=== PATIENT | female | born 1970 | race Caucasian/White ===

== ENCOUNTER 2016-04-26 11:23 | Emergency (ER) | payer OTHER ==
[~2016-04-26 11:23] MED LIST: ACET500C OR; EPI PEN; FERR325T OR; LEVO25TA2 OR; MULTIVIT OR; ORTHO TRI CYCLEN OR
[2016-04-26] MEDS ORDERED: ONDANSETRON 4MG/2ML VIAL (J2405) As Ordered ONE (13:24)
[2016-04-26] MEDS ORDERED: KETOROLAC 30 MG/ML VIAL (J1885) As Ordered ONE (13:24)
[2016-04-26 13:47] LABS: BASO % 0.2 % (0.0-1.0); EOS # 0.1 K/mm3 (0.0-0.50); EOS % 1.8 % (0.0-3.0); LARGE UNSTAINED CELL # 0.1 K/mm3 (0.0-0.4); LARGE UNSTAINED CELL % 1.6 % (0.0-4.0); LYMPH # 1.1 K/mm3 (1.5-4.5); LYMPH % 14.7 % (24.0-44.0); MEAN CORPUSCULAR HEMOGLOBIN 29.9 pg (27.0-33.0); MEAN CORPUSCULAR HGB CONC 33.8 g/dl (32.0-36.5); MEAN CORPUSCULAR VOLUME 88.5 fl (80.0-96.0); MONO # 0.3 K/mm3 (0.0-0.8); MONO % 3.8 % (0.0-5.0); NEUTROPHILS % 77.9 % (36.0-66.0); PLATELET COUNT, AUTOMATED 229 k/mm3 (150-450); RED CELL DISTRIBUTION WIDTH 11.9 % (11.5-14.5); WHITE BLOOD COUNT 7.7 K/mm3 (4.0-10.0)
[2016-04-26 14:13] LABS: ALBUMIN 3.8 GM/DL (3.2-5.2); ALBUMIN/GLOBULIN RATIO 1.03 (1.00-1.93); ALKALINE PHOSPHATASE 100 U/L (45-117); ALT/SGPT 30 U/L (12-78); ANION GAP 7 MEQ/L (8-16); AST/SGOT 18 U/L (15-37); BILIRUBIN,DIRECT < 0.1 MG/DL (0.0-0.2); BILIRUBIN,TOTAL 0.2 MG/DL (0.2-1.0); BLOOD UREA NITROGEN 17 MG/DL (7-18); CARBON DIOXIDE LEVEL 31 MEQ/L (21-32); CHLORIDE LEVEL 104 MEQ/L (98-107); CREATININE FOR GFR 0.75 MG/DL (0.55-1.02); GLOMERULAR FILTRATION RATE > 60.0 (>58); GLUCOSE, FASTING 86 MG/DL (70-105); POTASSIUM SERUM 3.8 MEQ/L (3.5-5.1); SODIUM LEVEL 142 MEQ/L (136-145); TOTAL PROTEIN 7.5 GM/DL (6.4-8.2)
--- NOTE | 2016-04-26 14:41 | REP ---
Chest x-ray: Two views. History: Cough. Findings: The lungs are well inflated and clear. Pleural angles are sharp. Heart size is normal. No significant bony abnormality is seen. Impression: Negative chest x-ray. Signed by Miki Harrison MD 04/26/2016 03:10 P
--- NOTE | 2016-04-26 15:27 | EDDOCDS ---
Nurse's Notes [facility] Name: Rachel Paula Age: 45 yrs Sex: Female : 1970 Arrival Date: 04/26/2016 Time: 11:23 Bed I5 / M5 Private MD: LADAN Patiño Diagnosis: Acute upper respiratory infections of multiple and unspecified sites;Acute bronchitis Presentation: 04/26 11:29 Presenting complaint: Patient states: "I feel very shaky, and weak and nauseous. I've ead been sick for a week and on antibiotics. I've had a really bad cough. I'm on my third day of antibiotic." Pt started on azithromycin. Adult Sepsis Screening: The patient does not have new or worsening altered mentation. Patient's respiratory rate is less than 22. Systolic blood pressure is greater than 100. Patient has a qSOFA score of 0- Negative Sepsis Screen. Suicide/Homicide risk assessment- the patient denies having any suicidal and/or homicidal ideations and does not present with any other emotional, behavioral or mental health complaints. Status: The patient is a dependent. Transition of care: patient was not received from another setting of care. 11:29 Acuity: VICKIE Level 3 ead 11:29 Method Of Arrival: Walkin/Carried/Asstd ead Triage Assessment: 11:35 General: Appears in no apparent distress, Behavior is appropriate for age, cooperative. ead Pain: Denies pain. HIV screening NA for this visit Offered previously. Neurological: Level of Consciousness is awake, alert, Oriented to person, place, time, Reports dizziness. Neurological: Reports weakness. Respiratory: Airway is patent Respiratory effort is even, unlabored, Reports cough that is. GI: Reports nausea. Derm: Skin is pink, warm & dry. 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 levothyroxine 25 mcg Oral tab 1 tab once daily 2. EpiPen 0.3 mg/0.3 mL (1:1,000) injection atIn 0.3 mL as needed 3. cetirizine 10 mg oral tab 1 tab every three weeks with allergy shots 4. Vitamin C 500 mg Oral tab daily 5. Oyster Shell Calcium With D 500/200 Oral daily 6. Benadryl 25 mg Oral cap 1 cap as needed 7. bupropion HCl 450 mg oral Tb24 once daily 8. ferrous fumarate-docusate sodium oral daily - PMHx: Hypothyroidism; Depression; - PSHx: Cholecystectomy; ; Appendectomy; Adenoidectomy; - Social history: Smoking status: Patient states was never smoker of tobacco. No barriers to communication noted, The patient speaks fluent Hong Konger, Speaks appropriately for age. - : The pt / caregiver states he / she is not on anticoagulants. Home medication list is obtained from the patient, Duroline import data, pill bottles. - Exposure Risk Screening:: None identified. Screenin:36 Screening information is obtained from the patient. Fall risk: No risks identified. ead Assistance ADL's: requires no assistance with activities of daily living. Abuse/DV Screen: The patient / caregiver reports he/she is: not in a situation that causes fear, pain or injury. Nutritional screening: No deficits noted. Advance Directives: Currently, there is no health care proxy. There is no active DNR order. There is no living will. There is no Power of Bsw. home support is adequate. Assessment: 15:25 General: Appears in no apparent distress. General: Reports fatigue for >3 days. jjr Respiratory: Airway is patent Respiratory effort is even, unlabored, Respiratory pattern is regular, Reports cough that is hacking, persistent. Derm: Skin is pink, warm & dry. Vital Signs: 11:24 BP 151 / 73; Pulse 69; Resp 16; Temp 98.3(O); Pulse Ox 100% on R/A; Weight 92.99 kg; sew Height 5 ft. 6 in. (167.64 cm); Pain 0/10; 14:53 BP 134 / 67; Pulse 73; Resp 18; Temp 98.6(O); Pulse Ox 92% on R/A; Pain 2/10; rs6 11:24 Body Mass Index 33.09 (92.99 kg, 167.64 cm) [facility]: 11:24 Log In Time: April 26, 2016 at 11:15. [facility] [place] Course: 11:24 Patient visited by Doris Lei. sew 11:24 [facility] is Private Physician. sew 11:24 Patient moved to Waiting sew 11:25 Patient visited by Doris Lei. sew 11:25 Patient moved to Pre RCE sew 11:31 Triage Initiated ead 11:53 Patient moved to Triage 1 mlb1 12:17 Patient visited by Iesha Carranza RN. ck1 12:41 Marko Marsh PA-C is PHCP. cc10 12:41 Doris Fan MD is Attending Physician. cc10 12:43 Patient visited by Marko Marsh PA-C. cc10 12:43 Patient visited by Marko Marsh PA-C. cc10 12:56 Patient moved to I5 / M5 mlb1 12:59 Patient visited by Tatiana Vazquez PCA. bnb 13:08 Patient visited by Tatiana Vazquez PCA. bnb 13:08 EKG done. (by ED staff). Reviewed by Marko Marsh PA-C. bnb 13:33 Basic Metabolic Profile Sent. mk4 13:33 CBC with Diff Sent. mk4 13:33 Lipase Sent. mk4 13:33 Liver Profile Sent. mk4 13:40 Patient visited by Marycruz Macias RN. mk4 13:53 Patient name changed from Rachel\\S\\Felipa\\S\\[place]\\S\\ to Rachel\\S\\L\\S\\Chai. EDMS 13:54 [facility] Payment Agreement was scanned into [employer] and attached to record. lg 14:19 Patient visited by Marycruz Macias RN. mk4 14:20 Patient visited by Marko Marsh PA-C. cc10 14:45 Haroon [facility] is Referral Physician. cc10 14:54 Patient visited by Latoya Goldsmith PCA. rs6 15:25 The patient / caregiver is instructed regarding the plan of care and ED course. jjr 15:25 Discontinued lock intact, bleeding controlled, pressure dressing applied, No jjr redness/swelling at site. 20 gauge left AC. No procedures done that require assistance. 15:26 Chest, 2 View (pa\\E\\lat) Returned. EDMS Administered Medications: 13:15 Drug: Albuterol-Ipratropium 3 ml [ipratropium-albuterol 0.5 mg-3 mg(2.5 mg base)/3 mL rs5 nebulization soln (3 mL)] Route: Inhalation; 13:36 Drug: NS 0.9% 1000 ml [sodium chloride 0.9 % intravenous solution] Route: IV; Rate: mk4 bolus; Site: left antecubital; 13:37 Drug: Ondansetron 4 mg Route: IVP; Site: left antecubital; mk4 13:38 Drug: ketorolac 30 mg [ketorolac 30 mg/mL (1 mL) injection solution (1 mL)] Route: IVP; mk4 Site: left antecubital; RT: 13:15 Initial Med Neb Given as ordered Patient was instructed and evaluated on procedure rs5 Patient tolerated procedure well without adverse effect. Respiratory: Respiratory effort is even, unlabored, Respiratory pattern is regular symmetrical, Reports cough that is productive air hunger. Order Results: Lab Order: Basic Metabolic Profile; SPEC'M 04/26/16 13:13 Test: GLUCOSE, FASTING; Value: 86; Range: 70-105; Units: MG/DL; Status: F Test: BLOOD UREA NITROGEN; Value: 17; Range: 7-18; Units: MG/DL; Status: F Test: CREATININE FOR GFR; Value: 0.75; Range: 0.55-1.02; Units: MG/DL; Status: F Test: GLOMERULAR FILTRATION RATE; Value: > 60.0; Range: >58; Status: F Test: SODIUM LEVEL; Value: 142; Range: 136-145; Units: MEQ/L; Status: F Test: POTASSIUM SERUM; Value: 3.8; Range: 3.5-5.1; Units: MEQ/L; Status: F Test: CHLORIDE LEVEL; Value: 104; Range: 98-107; Units: MEQ/L; Status: F Test: CARBON DIOXIDE LEVEL; Value: 31; Range: 21-32; Units: MEQ/L; Status: F Test: ANION GAP; Value: 7; Range: 8-16; Abnormal: Below low normal; Units: MEQ/L; Status: F Test: CALCIUM LEVEL; Value: 9.0; Range: 8.5-10.1; Units: MG/DL; Status: F Test Note: ; Units are mL/min/1.73 m2 Chronic Kidney Disease Staging per NKF: Stage I & II GFR >=60 Normal to Mildly Decreased Stage III GFR 30-59 Moderately Decreased Stage IV GFR 15-29 Severely Decreased Stage V GFR <15 Very Little GFR Left ESRD GFR <15 on LOGISTICS OPERATIONS MANAGER Lab Order: CBC with Diff; SPEC'M 04/26/16 13:13 Test: WHITE BLOOD COUNT; Value: 7.7; Range: 4.0-10.0; Units: K/mm3; Status: F Test: RED BLOOD COUNT; Value: 4.20; Range: 4.00-5.40; Units: M/mm3; Status: F Test: HEMOGLOBIN; Value: 12.6; Range: 12.0-16.0; Units: g/dl; Status: F Test: HEMATOCRIT; Value: 37.2; Range: 36.0-47.0; Units: %; Status: F Test: MEAN CORPUSCULAR VOLUME; Value: 88.5; Range: 80.0-96.0; Units: fl; Status: F Test: MEAN CORPUSCULAR HEMOGLOBIN; Value: 29.9; Range: 27.0-33.0; Units: pg; Status: F Test: MEAN CORPUSCULAR HGB CONC; Value: 33.8; Range: 32.0-36.5; Units: g/dl; Status: F Test: RED CELL DISTRIBUTION WIDTH; Value: 11.9; Range: 11.5-14.5; Units: %; Status: F Test: PLATELET COUNT, AUTOMATED; Value: 229; Range: 150-450; Units: k/mm3; Status: F Test: NEUTROPHILS %; Value: 77.9; Range: 36.0-66.0; Abnormal: Above high normal; Units: %; Status: F Test: LYMPH %; Value: 14.7; Range: 24.0-44.0; Abnormal: Below low normal; Units: %; Status: F Test: MONO %; Value: 3.8; Range: 0.0-5.0; Units: %; Status: F Test: EOS %; Value: 1.8; Range: 0.0-3.0; Units: %; Status: F Test: BASO %; Value: 0.2; Range: 0.0-1.0; Units: %; Status: F Test: LARGE UNSTAINED CELL %; Value: 1.6; Range: 0.0-4.0; Units: %; Status: F Test: NEUTROPHILS #; Value: 6.0; Range: 1.8-7.7; Units: K/mm3; Status: F Test: LYMPH #; Value: 1.1; Range: 1.5-4.5; Abnormal: Below low normal; Units: K/mm3; Status: F Test: MONO #; Value: 0.3; Range: 0.0-0.8; Units: K/mm3; Status: F Test: EOS #; Value: 0.1; Range: 0.0-0.50; Units: K/mm3; Status: F Test: BASO #; Value: 0.0; Range: 0.0-0.2; Units: K/mm3; Status: F Test: LARGE UNSTAINED CELL #; Value: 0.1; Range: 0.0-0.4; Units: K/mm3; Status: F Lab Order: Lipase; SPEC'M 04/26/16 13:13 Test: LIPASE; Value: 138; Range: 73-393; Units: U/L; Status: F Lab Order: Liver Profile; SPEC'M 04/26/16 13:13 Test: AST/SGOT; Value: 18; Range: 15-37; Units: U/L; Status: F Test: ALT/SGPT; Value: 30; Range: 12-78; Units: U/L; Status: F Test: ALKALINE PHOSPHATASE; Value: 100; Range: 45-117; Units: U/L; Status: F Test: BILIRUBIN,TOTAL; Value: 0.2; Range: 0.2-1.0; Units: MG/DL; Status: F Test: BILIRUBIN,DIRECT; Value: < 0.1; Range: 0.0-0.2; Units: MG/DL; Status: F Test: TOTAL PROTEIN; Value: 7.5; Range: 6.4-8.2; Units: GM/DL; Status: F Test: ALBUMIN; Value: 3.8; Range: 3.2-5.2; Units: GM/DL; Status: F Test: ALBUMIN/GLOBULIN RATIO; Value: 1.03; Range: 1.00-1.93; Status: F Lab Order: Urinalysis; SPEC'M 04/26/16 13:00 Test: APPEARANCE, URINE; Value: CLEAR; Range: CLEAR; Status: F Test: COLOR, URINE; Value: COLORLESS; Range: YELLOW; Status: F Test: PH,URINE; Value: 6.0; Range: 5.0-9.0; Units: UNITS; Status: F Test: SPECIFIC GRAVITY URINE AUTO; Value: 1.002; Range: 1.002-1.035; Status: F Test: PROTEIN, URINE AUTO; Value: NEGATIVE; Range: NEGATIVE; Units: mg/dL; Status: F Test: GLUCOSE, URINE (UA) AUTO; Value: NEGATIVE; Range: NEGATIVE; Units: mg/dL; Status: F Test: KETONE, URINE AUTO; Value: NEGATIVE; Range: NEGATIVE; Units: mg/dL; Status: F Test: UROBILINOGEN, URINE AUTO; Value: 0.2; Range: 0.0-2.0; Units: mg/dL; Status: F Test: BILIRUBIN, URINE AUTO; Value: NEGATIVE; Range: NEGATIVE; Status: F Test: NITRITE, URINE AUTO; Value: NEGATIVE; Range: NEGATIVE; Status: F Test: LEUKOCYTE ESTERASE, URINE AUTO; Value: NEGATIVE; Range: NEGATIVE; Status: F Test: BLOOD, URINE BLOOD; Value: 1+; Range: NEGATIVE; Abnormal: Above high normal; Status: F Test: WBC, URINE AUTO; Value: 0; Range: 0-3; Units: /HPF; Status: F Test: RBC, URINE AUTO; Value: 0; Range: 0-3; Units: /HPF; Status: F Test: BACTERIA, URINE AUTO; Value: NEGATIVE; Range: NEGATIVE; Status: F Test: SQUAMOUS EPITHELIAL CELL UR AU; Value: 0; Range: 0-6; Units: /HPF; Status: F Test: HYALINE CAST, URINE AUTO; Value: 0; Range: 0-1; Units: /LPF; Status: F Radiology Order: Chest, 2 View (pa\\E\\lat) Test: Chest, 2 View (pa\\E\\lat) REASON FOR EXAMINATION: Cough; Chest x-ray: Two views.; ; History: Cough.; ; Findings: The lungs are well inflated and clear. Pleural angles are sharp.; Heart size is normal. No significant bony abnormality is seen.; ; Impression:; ; Negative chest x-ray.; ; ; Signed by; Miki Harrison MD 04/26/2016 03:10 P; Outcome: 14:45 Discharge ordered by Provider. cc10 15:26 Discharge Assessment: patient administered narcotics - no. The following High Risk jjr Discharge criteria are identified: None. Discharged to home ambulatory. Condition: stable. Discharge instructions given to patient, Instructed on discharge instructions, follow up and referral plans. medication usage, Demonstrated understanding of instructions, medications, Prescriptions given X 2. No special radiology studies were completed. Property sent home with patient. 15:26 Patient left the ED. jjr Signatures: Dispatcher [employer] EDMS Liset Dunn, Reg Reg lg Harshad Engel, RN RN mlb1 Iesha Carranza,RN RN ck1 Adriana Gruber, RN RN jjr Isrrael Guzman,RT RT rs5 Doris Lei Margaret, RN RN mk4 Katherine Espinal,RN RN Marko San, PA-C PA-C cc10 Latoya Goldsmith, ACROBATIC RIGGER ACROBATIC RIGGER rs6 Tatiana Vazquez, ACROBATIC RIGGER ACROBATIC RIGGER bnb MTDD
--- NOTE | 2016-04-26 15:27 | EDDOCDS ---
Physician Documentation [facility] Name: Rachel Paula Age: 45 yrs Sex: Female : 1970 Arrival Date: 04/26/2016 Time: 11:23 Bed I5 / M5 Private MD: LADAN Patiño Disposition: 04/26/16 14:45 Discharged to Home/Self Care. Impression: Acute upper respiratory infections of multiple and unspecified sites, Acute bronchitis. - Condition is Stable. - Discharge Instructions: Acute Bronchitis, Upper Respiratory Infection, Adult. - Prescriptions for Prednisone 20 mg Oral Tablet - take 1 tablet by ORAL route once daily for 5 days; 5 tablet. Albuterol Sulfate 90 mcg/actuation Inhalation HFA Aerosol Inhaler - inhale 2 puff by INHALATION route every 4 hours As needed; 1 Inhaler. - Medication Reconciliation, Local Pharmacy Hours form. - Follow up: Emergency Department; When: As needed; Reason: Worsening of conditions. Follow up: LADAN Patiño; When: Call to arrange an appointment; Reason: Wound/Symptom Recheck, Recheck today's complaints, Worsening of conditions, Continuance of care. - Problem is an ongoing problem. - Symptoms are unchanged. Historical: - Allergies: Cephalexin; Tree Nuts; Codeine Sulfate; - Home Meds: 1. levothyroxine 25 mcg Oral tab 1 tab once daily 2. EpiPen 0.3 mg/0.3 mL (1:1,000) injection atIn 0.3 mL as needed 3. cetirizine 10 mg oral tab 1 tab every three weeks with allergy shots 4. Vitamin C 500 mg Oral tab daily 5. Oyster Shell Calcium With D 500/200 Oral daily 6. Benadryl 25 mg Oral cap 1 cap as needed 7. bupropion HCl 450 mg oral Tb24 once daily 8. ferrous fumarate-docusate sodium oral daily - PMHx: Hypothyroidism; Depression; - PSHx: Cholecystectomy; ; Appendectomy; Adenoidectomy; - Social history: Smoking status: Patient states was never smoker of tobacco. No barriers to communication noted, The patient speaks fluent Vietnamese, Speaks appropriately for age. - : The pt / caregiver states he / she is not on anticoagulants. Home medication list is obtained from the patient, [employer] import data, pill bottles. - Exposure Risk Screening:: None identified. 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 6 in. (167.64 cm); Pain 0/10; 14:53 BP 134 / 67; Pulse 73; Resp 18; Temp 98.6(O); Pulse Ox 92% on R/A; Pain 2/10; rs6 11:24 Body Mass Index 33.09 (92.99 kg, 167.64 cm) sew MDM: 12:54 NS 0.9% 1000 ml IV at bolus once ordered. cc10 12:54 Ondansetron 4 mg IVP once ordered. cc10 12:54 ketorolac 30 mg IVP once ordered. cc10 12:54 IV Saline Lock ordered. cc10 12:54 Undress patient appropriately for examination ordered. cc10 12:55 NOTHING BY MOUTH+DIET ordered. EDMS 12:56 Basic Metabolic Profile Ordered. EDMS 12:56 CBC with Diff Ordered. EDMS 12:56 Lipase Ordered. EDMS 12:56 Liver Profile Ordered. EDMS 12:56 Urinalysis Ordered. EDMS 12:56 Chest, 2 View (pa\E\lat) Ordered. EDMS 12:56 ECG WITH READING ER PHYS+CARDIAG ordered. EDMS 13:08 Albuterol-Ipratropium 3 ml Inhalation once ordered. cc10 13:08 Call Respiratory ordered. cc10 13:08 Financial registration complete. lg 13:10 Call Respiratory complete. bnb 13:45 Urinalysis Reviewed. cc10 13:54 [facility] Payment Agreement was scanned into [email or web address] and attached to record. lg 14:11 CBC with Diff Reviewed. cc10 14:20 Basic Metabolic Profile Reviewed. cc10 14:20 Lipase Reviewed. cc10 14:20 Liver Profile Reviewed. cc10 14:21 Vital Signs ordered. cc10 Administered Medications: 13:15 Drug: Albuterol-Ipratropium 3 ml [ipratropium-albuterol 0.5 mg-3 mg(2.5 mg base)/3 mL rs5 nebulization soln (3 mL)] Route: Inhalation; 13:36 Drug: NS 0.9% 1000 ml [sodium chloride 0.9 % intravenous solution] Route: IV; Rate: mk4 bolus; Site: left antecubital; 13:37 Drug: Ondansetron 4 mg Route: IVP; Site: left antecubital; mk4 13:38 Drug: ketorolac 30 mg [ketorolac 30 mg/mL (1 mL) injection solution (1 mL)] Route: IVP; mk4 Site: left antecubital; Signatures: Dispatcher [employer] EDLiset Hollingsworth, Reg Reg lg Adriana Gruber, RN RN Katherine AlbarranRN RN Marko San, PA-C PA-C cc10 Tatiana Vazquez, SHEA WAREHOUSE DIRECTOR Isrrael Nevarez RT rs5 Marycruz Macias RN mk4 The chart was reviewed and I authenticate all verbal orders and agree with the evaluation and treatment provided.Attachments: 13:54 [facility] Payment Agreement lg MTDD
--- NOTE | 2016-04-26 21:19 | ECGEPIP ---
Stationary ECG Study [facility] - ED Test Date: 2016-04-26 Pat Name: ALINA SHEARER Department: Room: - Gender: F Director Of Testing: richy : 1970 Requested By: Marko Marsh PA-C Order Number: [id number] Reading MD: Urbano Gayle Measurements Intervals Speer Rate: 62 P: 43 TX: 179 QRS: -17 QRSD: 117 T: 1 QT: 404 QTc: 411 Interpretive Statements SINUS RHYTHM WITH OCCASIONAL SUPRAVENTRICULAR PREMATURE COMPLEXES MODERATE INTRAVENTRICULAR CONDUCTION DELAY MODERATE VOLTAGE CRITERIA FOR LVH, CONSIDER NORMAL VARIANT Electronically Signed On 04-26-2016 21:19:14 EST by Urbano Gayle
--- NOTE | 2016-04-28 16:27 | EDDOCDS ---
Physician Documentation [facility] Name: Rachel Paula Age: 45 yrs Sex: Female : 1970 Arrival Date: 04/26/2016 Time: 11:23 Bed I5 / M5 Private MD: LADAN Patiño Disposition: 04/26/16 14:45 Discharged to Home/Self Care. Impression: Acute upper respiratory infections of multiple and unspecified sites, Acute bronchitis. - Condition is Stable. - Discharge Instructions: Acute Bronchitis, Upper Respiratory Infection, Adult. - Prescriptions for Prednisone 20 mg Oral Tablet - take 1 tablet by ORAL route once daily for 5 days; 5 tablet. Albuterol Sulfate 90 mcg/actuation Inhalation HFA Aerosol Inhaler - inhale 2 puff by INHALATION route every 4 hours As needed; 1 Inhaler. - Medication Reconciliation, Local Pharmacy Hours form. - Follow up: Emergency Department; When: As needed; Reason: Worsening of conditions. Follow up: LADAN Patiño; When: Call to arrange an appointment; Reason: Wound/Symptom Recheck, Recheck today's complaints, Worsening of conditions, Continuance of care. - Problem is an ongoing problem. - Symptoms are unchanged. Historical: - Allergies: Cephalexin; Tree Nuts; Codeine Sulfate; - Home Meds: 1. levothyroxine 25 mcg Oral tab 1 tab once daily 2. EpiPen 0.3 mg/0.3 mL (1:1,000) injection atIn 0.3 mL as needed 3. cetirizine 10 mg oral tab 1 tab every three weeks with allergy shots 4. Vitamin C 500 mg Oral tab daily 5. Oyster Shell Calcium With D 500/200 Oral daily 6. Benadryl 25 mg Oral cap 1 cap as needed 7. bupropion HCl 450 mg oral Tb24 once daily 8. ferrous fumarate-docusate sodium oral daily - PMHx: Hypothyroidism; Depression; - PSHx: Cholecystectomy; ; Appendectomy; Adenoidectomy; - Social history: Smoking status: Patient states was never smoker of tobacco. No barriers to communication noted, The patient speaks fluent German, Speaks appropriately for age. - : The pt / caregiver states he / she is not on anticoagulants. Home medication list is obtained from the patient, [employer] import data, pill bottles. - Exposure Risk Screening:: None identified. 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 6 in. (167.64 cm); Pain 0/10; 14:53 BP 134 / 67; Pulse 73; Resp 18; Temp 98.6(O); Pulse Ox 92% on R/A; Pain 2/10; rs6 11:24 Body Mass Index 33.09 (92.99 kg, 167.64 cm) sew MDM: 12:54 NS 0.9% 1000 ml IV at bolus once ordered. cc10 12:54 Ondansetron 4 mg IVP once ordered. cc10 12:54 ketorolac 30 mg IVP once ordered. cc10 12:54 IV Saline Lock ordered. cc10 12:54 Undress patient appropriately for examination ordered. cc10 12:55 NOTHING BY MOUTH+DIET ordered. EDMS 12:56 Basic Metabolic Profile Ordered. EDMS 12:56 CBC with Diff Ordered. EDMS 12:56 Lipase Ordered. EDMS 12:56 Liver Profile Ordered. EDMS 12:56 Urinalysis Ordered. EDMS 12:56 Chest, 2 View (pa\E\lat) Ordered. EDMS 12:56 ECG WITH READING ER PHYS+CARDIAG ordered. EDMS 13:08 Albuterol-Ipratropium 3 ml Inhalation once ordered. cc10 13:08 Call Respiratory ordered. cc10 13:08 Financial registration complete. lg 13:10 Call Respiratory complete. bnb 13:45 Urinalysis Reviewed. cc10 13:54 [facility] Payment Agreement was scanned into [employer] and attached to record. lg 14:11 CBC with Diff Reviewed. cc10 14:20 Basic Metabolic Profile Reviewed. cc10 14:20 Lipase Reviewed. cc10 14:20 Liver Profile Reviewed. cc10 14:21 Vital Signs ordered. cc10 04/27 11:04 T-Sheet-- Draft Copy was scanned into [employer] and attached to record. gb 11:04 ECG/EKG was scanned into [employer] and attached to record. gb Administered Medications: 04/26 13:15 Drug: Albuterol-Ipratropium 3 ml [ipratropium-albuterol 0.5 mg-3 mg(2.5 mg base)/3 mL rs5 nebulization soln (3 mL)] Route: Inhalation; 13:36 Drug: NS 0.9% 1000 ml [sodium chloride 0.9 % intravenous solution] Route: IV; Rate: mk4 bolus; Site: left antecubital; 13:37 Drug: Ondansetron 4 mg Route: IVP; Site: left antecubital; mk4 13:38 Drug: ketorolac 30 mg [ketorolac 30 mg/mL (1 mL) injection solution (1 mL)] Route: IVP; mk4 Site: left antecubital; Signatures: Dispatcher [employer] EDMS Cary Guidry, Reg Reg gb Liset Dunn, Reg Reg lg Adriana Gruber, RN RN Katherine Albarran,RN RN Marko San, PA-C PA-C cc10 Tatiana Vaqzuez, DESIGN PRINTING MACHINE SETTER DESIGN PRINTING MACHINE SETTER Isrrael Nevarez RT rs5 Marycruz Macias RN mk4 The chart was reviewed and I authenticate all verbal orders and agree with the evaluation and treatment provided.Attachments: 13:54 [facility] Payment Agreement lg 04/27 11:04 T-Sheet-- Draft Copy gb 11:04 ECG/EKG Chart Complete MTDD
--- NOTE | 2016-04-28 16:27 | EDDOCDS ---
Nurse's Notes [facility] Name: Alina Paula Age: 45 yrs Sex: Female : 1970 Arrival Date: 04/26/2016 Time: 11:23 Bed I5 / M5 Private MD: LADAN Patiño Diagnosis: Acute upper respiratory infections of multiple and unspecified sites;Acute bronchitis Presentation: 04/26 11:29 Presenting complaint: Patient states: "I feel very shaky, and weak and nauseous. I've ead been sick for a week and on antibiotics. I've had a really bad cough. I'm on my third day of antibiotic." Pt started on azithromycin. Adult Sepsis Screening: The patient does not have new or worsening altered mentation. Patient's respiratory rate is less than 22. Systolic blood pressure is greater than 100. Patient has a qSOFA score of 0- Negative Sepsis Screen. Suicide/Homicide risk assessment- the patient denies having any suicidal and/or homicidal ideations and does not present with any other emotional, behavioral or mental health complaints. Status: The patient is a dependent. Transition of care: patient was not received from another setting of care. 11:29 Acuity: VICKIE Level 3 ead 11:29 Method Of Arrival: Walkin/Carried/Asstd ead Triage Assessment: 11:35 General: Appears in no apparent distress, Behavior is appropriate for age, cooperative. ead Pain: Denies pain. HIV screening NA for this visit Offered previously. Neurological: Level of Consciousness is awake, alert, Oriented to person, place, time, Reports dizziness. Neurological: Reports weakness. Respiratory: Airway is patent Respiratory effort is even, unlabored, Reports cough that is. GI: Reports nausea. Derm: Skin is pink, warm & dry. DIGITAL INTERN: 11:35 LMP 04/21/2016 ead Historical: - Allergies: Cephalexin; Tree Nuts; Codeine Sulfate; - Home Meds: 1. levothyroxine 25 mcg Oral tab 1 tab once daily 2. EpiPen 0.3 mg/0.3 mL (1:1,000) injection atIn 0.3 mL as needed 3. cetirizine 10 mg oral tab 1 tab every three weeks with allergy shots 4. Vitamin C 500 mg Oral tab daily 5. Oyster Shell Calcium With D 500/200 Oral daily 6. Benadryl 25 mg Oral cap 1 cap as needed 7. bupropion HCl 450 mg oral Tb24 once daily 8. ferrous fumarate-docusate sodium oral daily - PMHx: Hypothyroidism; Depression; - PSHx: Cholecystectomy; ; Appendectomy; Adenoidectomy; - Social history: Smoking status: Patient states was never smoker of tobacco. No barriers to communication noted, The patient speaks fluent Northern Irish, Speaks appropriately for age. - : The pt / caregiver states he / she is not on anticoagulants. Home medication list is obtained from the patient, [employer] import data, pill bottles. - Exposure Risk Screening:: None identified. Screenin:36 Screening information is obtained from the patient. Fall risk: No risks identified. ead Assistance ADL's: requires no assistance with activities of daily living. Abuse/DV Screen: The patient / caregiver reports he/she is: not in a situation that causes fear, pain or injury. Nutritional screening: No deficits noted. Advance Directives: Currently, there is no health care proxy. There is no active DNR order. There is no living will. There is no Power of Truck Trailer Final Inspector. home support is adequate. Assessment: 15:25 General: Appears in no apparent distress. General: Reports fatigue for >3 days. jjr Respiratory: Airway is patent Respiratory effort is even, unlabored, Respiratory pattern is regular, Reports cough that is hacking, persistent. Derm: Skin is pink, warm & dry. Vital Signs: 11:24 BP 151 / 73; Pulse 69; Resp 16; Temp 98.3(O); Pulse Ox 100% on R/A; Weight 92.99 kg; sew Height 5 ft. 6 in. (167.64 cm); Pain 0/10; 14:53 BP 134 / 67; Pulse 73; Resp 18; Temp 98.6(O); Pulse Ox 92% on R/A; Pain 2/10; rs6 11:24 Body Mass Index 33.09 (92.99 kg, 167.64 cm) [facility] [place] 11:24 Log In Time: April 26, 2016 at 11:15. [facility] [place]: 11:24 Patient visited by Doris Lei. sew 11:24 Haroon [facility] [place] Private Physician. sew 11:24 Patient moved to Waiting sew 11:25 Patient visited by Doris Lei. sew 11:25 Patient moved to Pre RCE sew 11:31 Triage Initiated ead 11:53 Patient moved to Triage 1 mlb1 12:17 Patient visited by Iesha Carranza,SEEMA. ck1 12:41 Marko Marsh PA-C is PHCP. cc10 12:41 Doris Fan MD is Attending Physician. cc10 12:43 Patient visited by Marko Marsh PA-C. cc10 12:43 Patient visited by Marko Marsh PA-C. cc10 12:56 Patient moved to I5 / M5 mlb1 12:59 Patient visited by Tatiana Vazquez PCA. bnb 13:08 Patient visited by Tatiana Vazquez PCA. bnb 13:08 EKG done. (by ED staff). Reviewed by Marko Marsh PA-C. bnb 13:33 Basic Metabolic Profile Sent. mk4 13:33 CBC with Diff Sent. mk4 13:33 Lipase Sent. mk4 13:33 Liver Profile Sent. mk4 13:40 Patient visited by Marycruz Macias RN. mk4 13:53 Patient name changed from Alina\\S\\Felipa\\S\\Trenton\\S\\ to Alina\\S\\L\\S\\Chai. EDMS 13:54 [facility] Payment Agreement was scanned into [employer] and attached to record. lg 14:19 Patient visited by Marycruz Macias RN. mk4 14:20 Patient visited by Marko Marsh PA-C. cc10 14:45 Haroon [facility] [place] is Referral Physician. cc10 14:54 Patient visited by Latoya Goldsmith PCA. rs6 15:25 The patient / caregiver is instructed regarding the plan of care and ED course. jjr 15:25 Discontinued lock intact, bleeding controlled, pressure dressing applied, No jjr redness/swelling at site. 20 gauge left AC. No procedures done that require assistance. 15:26 Chest, 2 View (pa\\E\\lat) Returned. EDMS 21:58 EKG-ADULT Returned. EDMS 04/27 11:04 T-Sheet-- Draft Copy was scanned into [employer] and attached to record. gb 11:04 ECG/EKG was scanned into [employer] and attached to record. gb Administered Medications: 04/26 13:15 Drug: Albuterol-Ipratropium 3 ml [ipratropium-albuterol 0.5 mg-3 mg(2.5 mg base)/3 mL rs5 nebulization soln (3 mL)] Route: Inhalation; 13:36 Drug: NS 0.9% 1000 ml [sodium chloride 0.9 % intravenous solution] Route: IV; Rate: mk4 bolus; Site: left antecubital; 13:37 Drug: Ondansetron 4 mg Route: IVP; Site: left antecubital; mk4 13:38 Drug: ketorolac 30 mg [ketorolac 30 mg/mL (1 mL) injection solution (1 mL)] Route: IVP; mk4 Site: left antecubital; RT: 13:15 Initial Med Neb Given as ordered Patient was instructed and evaluated on procedure rs5 Patient tolerated procedure well without adverse effect. Respiratory: Respiratory effort is even, unlabored, Respiratory pattern is regular symmetrical, Reports cough that is productive air hunger. Order Results: Lab Order: Basic Metabolic Profile; SPEC'M 04/26/16 13:13 Test: GLUCOSE, FASTING; Value: 86; Range: 70-105; Units: MG/DL; Status: F Test: BLOOD UREA NITROGEN; Value: 17; Range: 7-18; Units: MG/DL; Status: F Test: CREATININE FOR GFR; Value: 0.75; Range: 0.55-1.02; Units: MG/DL; Status: F Test: GLOMERULAR FILTRATION RATE; Value: > 60.0; Range: >58; Status: F Test: SODIUM LEVEL; Value: 142; Range: 136-145; Units: MEQ/L; Status: F Test: POTASSIUM SERUM; Value: 3.8; Range: 3.5-5.1; Units: MEQ/L; Status: F Test: CHLORIDE LEVEL; Value: 104; Range: 98-107; Units: MEQ/L; Status: F Test: CARBON DIOXIDE LEVEL; Value: 31; Range: 21-32; Units: MEQ/L; Status: F Test: ANION GAP; Value: 7; Range: 8-16; Abnormal: Below low normal; Units: MEQ/L; Status: F Test: CALCIUM LEVEL; Value: 9.0; Range: 8.5-10.1; Units: MG/DL; Status: F Test Note: ; Units are mL/min/1.73 m2 Chronic Kidney Disease Staging per NKF: Stage I & II GFR >=60 Normal to Mildly Decreased Stage III GFR 30-59 Moderately Decreased Stage IV GFR 15-29 Severely Decreased Stage V GFR <15 Very Little GFR Left ESRD GFR <15 on COAGULATING DRYING SUPERVISOR Lab Order: CBC with Diff; SPEC'M 04/26/16 13:13 Test: WHITE BLOOD COUNT; Value: 7.7; Range: 4.0-10.0; Units: K/mm3; Status: F Test: RED BLOOD COUNT; Value: 4.20; Range: 4.00-5.40; Units: M/mm3; Status: F Test: HEMOGLOBIN; Value: 12.6; Range: 12.0-16.0; Units: g/dl; Status: F Test: HEMATOCRIT; Value: 37.2; Range: 36.0-47.0; Units: %; Status: F Test: MEAN CORPUSCULAR VOLUME; Value: 88.5; Range: 80.0-96.0; Units: fl; Status: F Test: MEAN CORPUSCULAR HEMOGLOBIN; Value: 29.9; Range: 27.0-33.0; Units: pg; Status: F Test: MEAN CORPUSCULAR HGB CONC; Value: 33.8; Range: 32.0-36.5; Units: g/dl; Status: F Test: RED CELL DISTRIBUTION WIDTH; Value: 11.9; Range: 11.5-14.5; Units: %; Status: F Test: PLATELET COUNT, AUTOMATED; Value: 229; Range: 150-450; Units: k/mm3; Status: F Test: NEUTROPHILS %; Value: 77.9; Range: 36.0-66.0; Abnormal: Above high normal; Units: %; Status: F Test: LYMPH %; Value: 14.7; Range: 24.0-44.0; Abnormal: Below low normal; Units: %; Status: F Test: MONO %; Value: 3.8; Range: 0.0-5.0; Units: %; Status: F Test: EOS %; Value: 1.8; Range: 0.0-3.0; Units: %; Status: F Test: BASO %; Value: 0.2; Range: 0.0-1.0; Units: %; Status: F Test: LARGE UNSTAINED CELL %; Value: 1.6; Range: 0.0-4.0; Units: %; Status: F Test: NEUTROPHILS #; Value: 6.0; Range: 1.8-7.7; Units: K/mm3; Status: F Test: LYMPH #; Value: 1.1; Range: 1.5-4.5; Abnormal: Below low normal; Units: K/mm3; Status: F Test: MONO #; Value: 0.3; Range: 0.0-0.8; Units: K/mm3; Status: F Test: EOS #; Value: 0.1; Range: 0.0-0.50; Units: K/mm3; Status: F Test: BASO #; Value: 0.0; Range: 0.0-0.2; Units: K/mm3; Status: F Test: LARGE UNSTAINED CELL #; Value: 0.1; Range: 0.0-0.4; Units: K/mm3; Status: F Lab Order: Lipase; SPEC' 04/26/16 13:13 Test: LIPASE; Value: 138; Range: 73-393; Units: U/L; Status: F Lab Order: Liver Profile; SPEC' 04/26/16 13:13 Test: AST/SGOT; Value: 18; Range: 15-37; Units: U/L; Status: F Test: ALT/SGPT; Value: 30; Range: 12-78; Units: U/L; Status: F Test: ALKALINE PHOSPHATASE; Value: 100; Range: 45-117; Units: U/L; Status: F Test: BILIRUBIN,TOTAL; Value: 0.2; Range: 0.2-1.0; Units: MG/DL; Status: F Test: BILIRUBIN,DIRECT; Value: < 0.1; Range: 0.0-0.2; Units: MG/DL; Status: F Test: TOTAL PROTEIN; Value: 7.5; Range: 6.4-8.2; Units: GM/DL; Status: F Test: ALBUMIN; Value: 3.8; Range: 3.2-5.2; Units: GM/DL; Status: F Test: ALBUMIN/GLOBULIN RATIO; Value: 1.03; Range: 1.00-1.93; Status: F Lab Order: Urinalysis; SPEC'M 04/26/16 13:00 Test: APPEARANCE, URINE; Value: CLEAR; Range: CLEAR; Status: F Test: COLOR, URINE; Value: COLORLESS; Range: YELLOW; Status: F Test: PH,URINE; Value: 6.0; Range: 5.0-9.0; Units: UNITS; Status: F Test: SPECIFIC GRAVITY URINE AUTO; Value: 1.002; Range: 1.002-1.035; Status: F Test: PROTEIN, URINE AUTO; Value: NEGATIVE; Range: NEGATIVE; Units: mg/dL; Status: F Test: GLUCOSE, URINE (UA) AUTO; Value: NEGATIVE; Range: NEGATIVE; Units: mg/dL; Status: F Test: KETONE, URINE AUTO; Value: NEGATIVE; Range: NEGATIVE; Units: mg/dL; Status: F Test: UROBILINOGEN, URINE AUTO; Value: 0.2; Range: 0.0-2.0; Units: mg/dL; Status: F Test: BILIRUBIN, URINE AUTO; Value: NEGATIVE; Range: NEGATIVE; Status: F Test: NITRITE, URINE AUTO; Value: NEGATIVE; Range: NEGATIVE; Status: F Test: LEUKOCYTE ESTERASE, URINE AUTO; Value: NEGATIVE; Range: NEGATIVE; Status: F Test: BLOOD, URINE BLOOD; Value: 1+; Range: NEGATIVE; Abnormal: Above high normal; Status: F Test: WBC, URINE AUTO; Value: 0; Range: 0-3; Units: /HPF; Status: F Test: RBC, URINE AUTO; Value: 0; Range: 0-3; Units: /HPF; Status: F Test: BACTERIA, URINE AUTO; Value: NEGATIVE; Range: NEGATIVE; Status: F Test: SQUAMOUS EPITHELIAL CELL UR AU; Value: 0; Range: 0-6; Units: /HPF; Status: F Test: HYALINE CAST, URINE AUTO; Value: 0; Range: 0-1; Units: /LPF; Status: F Radiology Order: Chest, 2 View (pa\\E\\lat) Test: Chest, 2 View (pa\\E\\lat) REASON FOR EXAMINATION: Cough; Chest x-ray: Two views.; ; History: Cough.; ; Findings: The lungs are well inflated and clear. Pleural angles are sharp.; Heart size is normal. No significant bony abnormality is seen.; ; Impression:; ; Negative chest x-ray.; ; ; Signed by; Miki Harrison MD 04/26/2016 03:10 P; Radiology Order: EKG-ADULT Test: EKG-ADULT REASON FOR EXAMINATION: Shortness of Breath; Stationary ECG Study; [facility] - ED; ; Test Date: 2016-04-26; Pat Name: ALINA PAULA Department:; Room: -; Gender: F Developmental Therapist: richy; : 1970 Requested By: Marko Marsh PA-C; Order Number: [id number] Reading MD: Urbano Gayle; Measurements; Intervals [place]; Rate: 62 P: 43; ME: 179 QRS: -17; QRSD: 117 T: 1; QT: 404; QTc: 411; Interpretive Statements; SINUS RHYTHM WITH OCCASIONAL SUPRAVENTRICULAR PREMATURE COMPLEXES; MODERATE INTRAVENTRICULAR CONDUCTION DELAY; MODERATE VOLTAGE CRITERIA FOR LVH, CONSIDER NORMAL VARIANT; ; Electronically Signed On 04-26-2016 21:19:14 EST by Urbano Gayel; Outcome: 14:45 Discharge ordered by Provider. cc10 15:26 Discharge Assessment: patient administered narcotics - no. The following High Risk jjr Discharge criteria are identified: None. Discharged to home ambulatory. Condition: stable. Discharge instructions given to patient, Instructed on discharge instructions, follow up and referral plans. medication usage, Demonstrated understanding of instructions, medications, Prescriptions given X 2. No special radiology studies were completed. Property sent home with patient. 15:26 Patient left the ED. jjr Signatures: Dispatcher [employer] EDHI Cary Guidry, Reg Reg gb Liset Dunn, Reg Reg lg Toro, Harshad Mcfadden RN RN mlb1 Iesha CarranzaRN RN ck1 Adriana Gruber, SEEMA RN Isrrael Edmond,RT RT rs5 Doris Lei Margaret, RN RN mk4 Katherine EspinalRN Marko Alston PA-C PA-C cc10 Latoya Goldsmith, INTEGRATION AIDE INTEGRATION AIDE rs6 Tatiana Vazquez, INTEGRATION AIDE INTEGRATION AIDE bnb Chart Complete MTDD
--- NOTE | 2016-04-28 16:27 | EDDOCDS ---
Physician Documentation [facility] Name: Rachel Paula Age: 45 yrs Sex: Female : 1970 Arrival Date: 04/26/2016 Time: 11:23 Bed I5 / M5 Private MD: LADAN Patiño Disposition: 04/26/16 14:45 Discharged to Home/Self Care. Impression: Acute upper respiratory infections of multiple and unspecified sites, Acute bronchitis. - Condition is Stable. - Discharge Instructions: Acute Bronchitis, Upper Respiratory Infection, Adult. - Prescriptions for Prednisone 20 mg Oral Tablet - take 1 tablet by ORAL route once daily for 5 days; 5 tablet. Albuterol Sulfate 90 mcg/actuation Inhalation HFA Aerosol Inhaler - inhale 2 puff by INHALATION route every 4 hours As needed; 1 Inhaler. - Medication Reconciliation, Local Pharmacy Hours form. - Follow up: Emergency Department; When: As needed; Reason: Worsening of conditions. Follow up: LADAN Patiño; When: Call to arrange an appointment; Reason: Wound/Symptom Recheck, Recheck today's complaints, Worsening of conditions, Continuance of care. - Problem is an ongoing problem. - Symptoms are unchanged. Historical: - Allergies: Cephalexin; Tree Nuts; Codeine Sulfate; - Home Meds: 1. levothyroxine 25 mcg Oral tab 1 tab once daily 2. EpiPen 0.3 mg/0.3 mL (1:1,000) injection atIn 0.3 mL as needed 3. cetirizine 10 mg oral tab 1 tab every three weeks with allergy shots 4. Vitamin C 500 mg Oral tab daily 5. Oyster Shell Calcium With D 500/200 Oral daily 6. Benadryl 25 mg Oral cap 1 cap as needed 7. bupropion HCl 450 mg oral Tb24 once daily 8. ferrous fumarate-docusate sodium oral daily - PMHx: Hypothyroidism; Depression; - PSHx: Cholecystectomy; ; Appendectomy; Adenoidectomy; - Social history: Smoking status: Patient states was never smoker of tobacco. No barriers to communication noted, The patient speaks fluent Maltese, Speaks appropriately for age. - : The pt / caregiver states he / she is not on anticoagulants. Home medication list is obtained from the patient, [employer] import data, pill bottles. - Exposure Risk Screening:: None identified. CAR RENTAL AGENCY MANAGER: 04/26 11:35 LMP 04/21/2016 ead Vital Signs: 11:24 BP 151 / 73; Pulse 69; Resp 16; Temp 98.3(O); Pulse Ox 100% on R/A; Weight 92.99 kg / sew 205.01 lbs; Height 5 ft. 6 in. (167.64 cm); Pain 0/10; 14:53 BP 134 / 67; Pulse 73; Resp 18; Temp 98.6(O); Pulse Ox 92% on R/A; Pain 2/10; rs6 11:24 Body Mass Index 33.09 (92.99 kg, 167.64 cm) sew MDM: 12:54 NS 0.9% 1000 ml IV at bolus once ordered. cc10 12:54 Ondansetron 4 mg IVP once ordered. cc10 12:54 ketorolac 30 mg IVP once ordered. cc10 12:54 IV Saline Lock ordered. cc10 12:54 Undress patient appropriately for examination ordered. cc10 12:55 NOTHING BY MOUTH+DIET ordered. EDMS 12:56 Basic Metabolic Profile Ordered. EDMS 12:56 CBC with Diff Ordered. EDMS 12:56 Lipase Ordered. EDMS 12:56 Liver Profile Ordered. EDMS 12:56 Urinalysis Ordered. EDMS 12:56 Chest, 2 View (pa\E\lat) Ordered. EDMS 12:56 ECG WITH READING ER PHYS+CARDIAG ordered. EDMS 13:08 Albuterol-Ipratropium 3 ml Inhalation once ordered. cc10 13:08 Call Respiratory ordered. cc10 13:08 Financial registration complete. lg 13:10 Call Respiratory complete. bnb 13:45 Urinalysis Reviewed. cc10 13:54 [facility] Payment Agreement was scanned into [employer] and attached to record. lg 14:11 CBC with Diff Reviewed. cc10 14:20 Basic Metabolic Profile Reviewed. cc10 14:20 Lipase Reviewed. cc10 14:20 Liver Profile Reviewed. cc10 14:21 Vital Signs ordered. cc10 04/27 11:04 T-Sheet-- Draft Copy was scanned into [employer] and attached to record. gb 11:04 ECG/EKG was scanned into [employer] and attached to record. gb Administered Medications: 04/26 13:15 Drug: Albuterol-Ipratropium 3 ml [ipratropium-albuterol 0.5 mg-3 mg(2.5 mg base)/3 mL rs5 nebulization soln (3 mL)] Route: Inhalation; 13:36 Drug: NS 0.9% 1000 ml [sodium chloride 0.9 % intravenous solution] Route: IV; Rate: mk4 bolus; Site: left antecubital; 13:37 Drug: Ondansetron 4 mg Route: IVP; Site: left antecubital; mk4 13:38 Drug: ketorolac 30 mg [ketorolac 30 mg/mL (1 mL) injection solution (1 mL)] Route: IVP; mk4 Site: left antecubital; Signatures: Dispatcher [employer] EDMS Cary Guidry, Reg Reg gb Liset Dunn, Reg Reg lg Adriana Gruber, RN RN Katherine Albarran,RN RN Marko San, PA-C PA-C cc10 Tatiana Vazquez, SEMICONDUCTOR WAFERS TESTER SEMICONDUCTOR WAFERS TESTER Isrrael Nevarez RT rs5 Marycruz Macias RN mk4 The chart was reviewed and I authenticate all verbal orders and agree with the evaluation and treatment provided.Attachments: 13:54 [facility] Payment Agreement lg 04/27 11:04 T-Sheet-- Draft Copy gb 11:04 ECG/EKG Chart Complete MTDD
== END 2016-04-26 15:26 | disposition home or self-care (01) ==
LOC: M ED 11:23
DX: J20.9 Acute bronchitis, unspecified (principal); E03.9 Hypothyroidism, unspecified; F32.9 Major depressive disorder, single episode, unspecified; Z79.899 Other long term (current) drug therapy; Z88.1 Allergy status to other antibiotic agents; Z88.5 Allergy status to narcotic agent; Z91.010 Allergy to peanuts
CPT/HCPCS: 36415; 71020; 80048; 80076; 81001; 83690; 85025; 93005; 94640; 96374; 96375; 99284; J1885; J2405

== ENCOUNTER 2017-10-21 20:34 | Emergency (ER) | payer OTHER ==
[2017-10-21 21:31] LABS: BASO % 0.3 % (0.0-1.0); EOS # 0.1 10^3/uL (0.0-0.50); EOS % 1.3 % (0.0-3.0); HEMOGLOBIN 11.9 g/dl (12.0-15.5); IMMATURE GRANULOCYTE % 0.3 % (0-3.0); LYMPH # 1.4 10^3/uL (1.5-4.5); LYMPH % 16.2 % (24.0-44.0); MEAN CORPUSCULAR HEMOGLOBIN 29.1 pg (27.0-33.0); MEAN CORPUSCULAR HGB CONC 33.1 g/dl (32.0-36.5); MONO # 0.7 10^3/uL (0.0-0.8); MONO % 7.5 % (0.0-5.0); NEUTROPHILS # 6.4 10^3/uL (1.8-7.7); NEUTROPHILS % 74.4 % (36.0-66.0); PLATELET COUNT, AUTOMATED 248 10^3/uL (150-450); RED BLOOD COUNT 4.09 10^6/uL (4.00-5.40); RED CELL DISTRIBUTION WIDTH 12.9 % (11.5-14.5); WHITE BLOOD COUNT 8.6 10^3/uL (4.0-10.0)
[2017-10-21 21:54] LABS: LACTIC ACID SEPSIS PROTOCOL 0.7 MMOL/L (0.4-2.0)
[2017-10-21 22:05] LABS: ALBUMIN 3.5 GM/DL (3.2-5.2); ALBUMIN/GLOBULIN RATIO 0.95 (1.00-1.93); ALKALINE PHOSPHATASE 126 U/L (45-117); ALT/SGPT 21 U/L (12-78); ANION GAP 9 MEQ/L (8-16); AST/SGOT 16 U/L (7-37); BILIRUBIN,DIRECT 0.1 MG/DL (0.0-0.2); BILIRUBIN,TOTAL 0.5 MG/DL (0.2-1.0); BLOOD UREA NITROGEN 14 MG/DL (7-18); CALCIUM LEVEL 8.8 MG/DL (8.5-10.1); CARBON DIOXIDE LEVEL 29 MEQ/L (21-32); CHLORIDE LEVEL 106 MEQ/L (98-107); CPK CREATINE PHOSPHOKINASE 210 U/L (26-192); CREATININE FOR GFR 0.69 MG/DL (0.55-1.30); GLOMERULAR FILTRATION RATE > 60.0 (>58); GLUCOSE, FASTING 88 MG/DL (70-100); LIPASE 80 U/L (73-393); MB/CK RELATIVE INDEX 0.95 (< OR =4); POTASSIUM SERUM 3.4 MEQ/L (3.5-5.1); SODIUM LEVEL 144 MEQ/L (136-145); TOTAL PROTEIN 7.2 GM/DL (6.4-8.2); TROPONIN I < 0.02 NG/ML (< 0.10)
[2017-10-21 22:20] LABS: KETONE, URINE AUTO RFX 2+ mg/dL (NEGATIVE); MUCUS, URINE RFX SMALL (NEGATIVE); NITRITE, URINE AUTO RFX NEGATIVE (NEGATIVE); RBC, URINE AUTO RFX 5 /HPF (0-3); SPECIFIC GRAVITY UR AUTO RFX 1.031 (1.002-1.035); SQUAM EPITHELIAL CELL UR AURFX 6 /HPF (0-6); WBC, URINE AUTO RFX 8 /HPF (0-3)
[2017-10-21 22:21] LABS: LEUKOCYTE ESTERASE UR AUTO RFX 1+ (NEGATIVE)
[2017-10-21] MEDS: KETOROLAC 30 MG/ML VIAL (J1885) IV (22:42)
[2017-10-21] MEDS: ONDANSETRON 4MG/2ML VIAL (J2405) IV (22:42)
[2017-10-21] MEDS: PANTOPRAZOLE 40MG INJ (PROTONIX) (C9113) IV (23:49)
[2017-10-21] MEDS: GI COCKTAIL 50ML BTL(HYOSCYAMINE/MAALOX/LIDOCAINE VISCOUS)(1:3:1) PO (23:49)
[2017-10-21] MEDS: NS 1,000 ML IV (23:49)
[2017-10-21] MEDS ORDERED: ISOVUE-370 76% 100ML VIAL (Q9967) As Ordered (23:57)
== END 2017-10-22 01:45 | disposition home or self-care (01) ==
LOC: M ED 10-22 01:45
DX: K29.70 Gastritis, unspecified, without bleeding (principal); G43.909 Migraine, unspecified, not intractable, without status migrainosus; M54.9 Dorsalgia, unspecified; R53.83 Other fatigue; E03.9 Hypothyroidism, unspecified; D64.9 Anemia, unspecified; Z88.1 Allergy status to other antibiotic agents; Z88.5 Allergy status to narcotic agent; Z91.018 Allergy to other foods; Z79.899 Other long term (current) drug therapy
CPT/HCPCS: C9113

== ENCOUNTER → 2017-10-26 | Outpatient (REF) | payer OTHER | LOC: M SFHCLERA 10:51 | DX: N30.01 Acute cystitis with hematuria (principal) | CPT/HCPCS: 87086 ==